=== PATIENT | female | born 1960 | race Caucasian/White ===

== ENCOUNTER → 2017-04-27 | Outpatient (CLI) | payer OTHER ==
--- NOTE | 2017-04-27 11:45 | REPMRS ---
Patient History The patient states she had a clinical breast exam in 05/03 Patient is postmenopausal. No known family history of cancer. Took unspecified hormones for 3 years 4 months. Digital Woman Screen Mammo: April 27, 2017 - Exam #: [id number] Bilateral CC and MLO view(s) were taken. Technologist: Dee Dee Ramos, Technologist Prior study comparison: February 12, 2016, digital woman screen mammo performed at [facility]. September 02, 2014, digital woman screen mammo performed at [facility]. December 04, 2012, digital woman screen mammo performed at [facility]. FINDINGS: The breast tissue is heterogeneously dense. This may lower the sensitivity of mammography. There is a moderate amount of heterogeneously dense fibroglandular tissue which is fairly symmetric. There is no interval development of dominant mass, architectural distortion, or clustered microcalcification typical of malignancy. There has been no change in the appearance of the mammogram from the prior studies. ASSESSMENT: BI-RADS/ACR category 1 mammogram. Negative. Recommendation Routine screening mammogram of both breasts in 1 year (for women over age 40). This mammogram was interpreted with the aid of an FDA-approved computer-aided dectection system. Electronically Signed By: Wellington Sheehan MD 04/27/17 [id number]
== END ==
LOC: M WHC 10:15
PROVIDERS: ATTEND Nurse Practitioner Family
DX: Z12.31 Encounter for screening mammogram for malignant neoplasm of breast (principal)

== ENCOUNTER → 2017-06-20 | Outpatient (REF) | payer OTHER | LOC: M LAB REF 13:47 | PROVIDERS: ATTEND Family Medicine | DX: R74.0 Nonspecific elevation of levels of transaminase and lactic acid dehydrogenase [LDH] (principal) ==

== ENCOUNTER → 2017-10-21 | Outpatient (CLI) | payer OTHER | LOC: M RAD 11:07 | DX: K80.50 Calculus of bile duct without cholangitis or cholecystitis without obstruction (principal) ==

== ENCOUNTER 2017-10-31 14:48 | Day surgery (SDC) | payer OTHER ==
[~2017-10-31 14:48] MED LIST: PANTOPRAZOLE 40MG TAB (PROTONIX) PO
[2017-10-31] MEDS ORDERED: ISOVUE-300 61% 50ML VIAL (Q9967) As Ordered (15:00)
[2017-10-31] MEDS: LR 1,000 ML IV (15:25)
[2017-10-31] MEDS ORDERED: PROPOFOL 200 MG/20 ML VIAL As Ordered (15:32)
[2017-10-31] MEDS ORDERED: ROCURONIUM BROMIDE 50 MG/5 ML VIAL As Ordered (15:32)
[2017-10-31] MEDS ORDERED: MIDAZOLAM INJ 2 MG/2 ML VIAL (J2250) As Ordered (15:33)
[2017-10-31] MEDS ORDERED: fentaNYL 100 MCG/2 ML INJECTION (J3010) As Ordered (15:33)
[2017-10-31] MEDS ORDERED: PHENYLephrine HCL 500 MCG/5 ML (100MCG/ML) SYRINGE (J2370) As Ordered (16:05)
[2017-10-31] MEDS ORDERED: GLYCOPYRROLATE INJ 0.2 MG/ML 2 ML VIAL As Ordered ×2 (16:33→16:34)
[2017-10-31] MEDS ORDERED: dexameTHASONE 4 MG/ML 1ML VIAL (J1100) As Ordered (16:34)
[2017-10-31] MEDS ORDERED: NEOSTIGMINE 10 MG/10 ML VIAL (J2710) As Ordered (16:34)
[2017-10-31] MEDS ORDERED: ONDANSETRON 4MG/2ML VIAL (J2405) As Ordered (16:34)
[2017-10-31] MEDS ORDERED: ONDANSETRON 4MG/2ML VIAL (J2405) IV (17:15)
[2017-10-31] MEDS ORDERED: METOCLOPRAMIDE INJ 10MG/2ML VIAL (J2765) IV (17:15)
[2017-10-31] MEDS ORDERED: LR 1,000 ML IV ×2 (17:15→17:45)
[2017-10-31] MEDS ORDERED: fentaNYL 100 MCG/2 ML INJECTION (J3010) IV (17:15)
[2017-10-31] MEDS ORDERED: MEPERIDINE INJ 25 MG/ML VIAL (J2175) IV (17:15)
[2017-10-31] MEDS ORDERED: PERCOCET 5MG/325MG TAB PO (17:15)
== END 2017-10-31 18:46 | disposition home or self-care (01) ==
LOC: M SDC 14:48
DX: K83.9 Disease of biliary tract, unspecified (principal); R93.5 Abnormal findings on diagnostic imaging of other abdominal regions, including retroperitoneum; R93.2 Abnormal findings on diagnostic imaging of liver and biliary tract; K80.50 Calculus of bile duct without cholangitis or cholecystitis without obstruction; K25.9 Gastric ulcer, unspecified as acute or chronic, without hemorrhage or perforation; K21.9 Gastro-esophageal reflux disease without esophagitis; Z79.899 Other long term (current) drug therapy
CPT/HCPCS: 43264

== ENCOUNTER → 2018-02-22 | Outpatient (REF) | payer OTHER ==
[2018-02-22 12:58] LABS: ALBUMIN/GLOBULIN RATIO 1.29 (1.00-1.93); ALKALINE PHOSPHATASE 91 U/L (45-117); ALT/SGPT 26 U/L (12-78); ANION GAP 10 MEQ/L (8-16); AST/SGOT 21 U/L (7-37); BILIRUBIN,TOTAL 0.6 MG/DL (0.2-1.0); BLOOD UREA NITROGEN 11 MG/DL (7-18); CALCIUM LEVEL 9.1 MG/DL (8.5-10.1); CARBON DIOXIDE LEVEL 27 MEQ/L (21-32); CHLORIDE LEVEL 108 MEQ/L (98-107); CHOLESTEROL LEVEL 167 MG/DL (<200); CHOLESTEROL RISK RATIO 2.609 (<5); CREATININE FOR GFR 0.81 MG/DL (0.55-1.30); GLOMERULAR FILTRATION RATE > 60.0 (>51); GLUCOSE, FASTING 98 MG/DL (70-100); HDL CHOLESTEROL 64 MG/DL (>40); LDL CHOLESTEROL 85.4 MG/DL (<100); NON-HDL-C 103 MG/DL; SODIUM LEVEL 145 MEQ/L (136-145); TOTAL PROTEIN 7.1 GM/DL (6.4-8.2); TRIGLYCERIDES LEVEL 88 MG/DL (<150)
[2018-02-22 13:29] LABS: ESTIMATED AVERAGE GLUCOSE 100 MG/DL (60-110); HEMOGLOBIN A1c 5.1 %
== END ==
LOC: M LABDRWAD 12:08
DX: Z13.220 Encounter for screening for lipoid disorders (principal); M65.4 Radial styloid tenosynovitis [de Quervain]; Z00.00 Encounter for general adult medical examination without abnormal findings

== ENCOUNTER → 2018-05-19 | Outpatient (CLI) | payer OTHER | LOC: M WHC 12:45 | DX: Z12.31 Encounter for screening mammogram for malignant neoplasm of breast (principal); Z92.29 Personal history of other drug therapy | CPT/HCPCS: 77067 ==

== ENCOUNTER → 2019-03-02 | Outpatient (REF) | payer OTHER ==
[~2019-03-02] MED LIST changes: +AUGM500T34 PO; +MULTCAP8 PO; +OMEP40CA97 PO; +PANT40TA3 PO; -PANTOPRAZOLE 40MG TAB (PROTONIX) PO; +RANI-397 PO; +VICO5TAB17 PO
[2019-03-02 19:49] LABS: HEMOGLOBIN A1c 5.1 %
[2019-03-02 20:04] LABS: ALBUMIN 4.3 GM/DL (3.2-5.2); ALT/SGPT 28 U/L (12-78); BILIRUBIN,TOTAL 0.5 MG/DL (0.2-1.0); BLOOD UREA NITROGEN 18 MG/DL (7-18); CALCIUM LEVEL 9.4 MG/DL (8.8-10.2); CARBON DIOXIDE LEVEL 28 MEQ/L (21-32); CHLORIDE LEVEL 106 MEQ/L (98-107); CHOLESTEROL LEVEL 168 MG/DL (<200); CHOLESTEROL RISK RATIO 2.709 (<5); CREATININE FOR GFR 0.92 MG/DL (0.55-1.30); GLOMERULAR FILTRATION RATE > 60.0 (>45); GLUCOSE, FASTING 97 MG/DL (70-100); HDL CHOLESTEROL 62 MG/DL (>40); LDL CHOLESTEROL 88 MG/DL (<100); NON-HDL-C 106 MG/DL; POTASSIUM SERUM 4.5 MEQ/L (3.5-5.1); SODIUM LEVEL 142 MEQ/L (136-145); TOTAL PROTEIN 7.4 GM/DL (6.4-8.2); TRIGLYCERIDES LEVEL 88 MG/DL (<150)
== END ==
LOC: M LABDRWAD 18:59
PROVIDERS: ATTEND Family Medicine
DX: Z00.00 Encounter for general adult medical examination without abnormal findings (principal); Z13.220 Encounter for screening for lipoid disorders

== ENCOUNTER → 2019-07-16 | Outpatient (CLI) | payer OTHER ==
--- NOTE | 2019-07-16 15:06 | REPMRS ---
Patient History The patient states she has not had a clinical breast exam in over a year. No known family history of cancer. Took unspecified hormones for 3 years 4 months. Digital Woman Screen Mammo: July 16, 2019 - Exam #: [id number] Bilateral CC and MLO view(s) were taken. Technologist: Emily Cowan, Technologist Prior study comparison: May 19, 2018, bilateral digital woman screen mammo performed at [facility]. April 27, 2017, digital woman screen mammo performed at [facility]. February 12, 2016, digital woman screen mammo performed at [facility]. FINDINGS: The breast tissue is heterogeneously dense. This may lower the sensitivity of mammography. There is a moderate amount of heterogeneously dense fibroglandular tissue which is fairly symmetric. There is no interval development of dominant mass, architectural distortion, or grouped microcalcification typical of malignancy. There has been no change in the appearance of the mammogram from the prior studies. 3-D tomosynthesis shows no additional findings. Assessment: BI-RADS/ACR category 1 mammogram. Negative Mammogram. Recommendation Routine screening mammogram of both breasts in 1 year (for women over age 40). This patient's Lifetime Breast Cancer RIsk is estimated at 8.3 %. This mammogram was interpreted with the aid of an FDA-approved computer-aided dectection system. Electronically Signed By: Wellington Sheehan MD 07/16/19 [id number]
== END ==
LOC: M WHC 09:57
PROVIDERS: ATTEND Family Medicine
DX: Z12.31 Encounter for screening mammogram for malignant neoplasm of breast (principal)

== ENCOUNTER 2020-04-01 12:10 | Emergency (ER) | payer OTHER ==
[~2020-04-01] VITALS: Ht 167.6 cm; Wt 92.9 kg
[~2020-04-01 12:10] MED LIST changes: +PANT40TA29 PO; -PANT40TA3 PO
[2020-04-01] MEDS ORDERED: PEPC10TA6 PO (12:17)
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
[2020-04-01] MEDS ORDERED: NORCO, ANEXSIA 5/325MG TABLET (HYDROcodone/ACETAMINOPHEN) PO ONE (13:15)
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
[2020-04-01] MEDS ORDERED: NORC1TAB7 PO (14:26)
[2020-04-01] MEDS ORDERED: NORCO 5/325MG TABLET (BULK FOR ED) PO ONE (14:30)
[2020-04-01 14:31] VITALS: BP 115/68
== END 2020-04-01 14:46 | disposition home or self-care (01) ==
LOC: M ED 12:10
DX: S52.122A Displaced fracture of head of left radius, initial encounter for closed fracture (principal); S52.612A Displaced fracture of left ulna styloid process, initial encounter for closed fracture; V18.0XXA Pedal cycle driver injured in noncollision transport accident in nontraffic accident, initial encounter; Y92.9 Unspecified place or not applicable; Y93.9 Activity, unspecified; Y99.9 Unspecified external cause status; Z79.899 Other long term (current) drug therapy

== ENCOUNTER → 2020-07-21 | Outpatient (CLI) | payer OTHER ==
[~2020-07-21] MED LIST changes: +NORC1TAB7 PO; +PEPC10TA6 PO
--- NOTE | 2020-07-21 12:08 | REPMRS ---
Patient History The patient states she had a clinical breast exam in 02/2020 No known family history of cancer. Took unspecified hormones for 3 years 4 months. 3D TOMOSYNTHESIS WAS PERFORMED. The Noel Adler lifetime risk for breast cancer is 8.0%. Volpara breast density b. Digital Woman Screen Mammo: July 21, 2020 - Exam #: [id number] Bilateral CC and MLO view(s) were taken. Technologist: Dee Dee Ramos, Technologist Prior study comparison: July 16, 2019, bilateral digital woman screen mammo performed at [facility]. May 19, 2018, bilateral digital woman screen mammo performed at [facility][1]. FINDINGS: There are scattered fibroglandular densities. There has been no change in the appearance of the mammogram from the prior studies. There is a mild amount of residual fibroglandular tissue which is fairly symmetric. There is no interval development of dominant mass, architectural distortion, or clustered microcalcification suggestive of malignancy. Assessment: BI-RADS/ACR category 1 mammogram. Negative Mammogram. Recommendation Routine screening mammogram in 1 year (for women over age 40). This mammogram was interpreted with the aid of an FDA-approved computer-aided dectection system. Electronically Signed By: Mert Owen MD 07/21/20 [id number]
== END ==
LOC: M WHC 10:30
PROVIDERS: ATTEND Family Medicine
DX: Z12.31 Encounter for screening mammogram for malignant neoplasm of breast (principal)

== ENCOUNTER → 2020-07-22 | Outpatient (REF) | payer OTHER | LOC: M SFHCWAGY 13:19 | PROVIDERS: ATTEND Nurse Practitioner Family | DX: Z12.4 Encounter for screening for malignant neoplasm of cervix (principal) | CPT/HCPCS: 87624; G0123 ==

== ENCOUNTER → 2020-08-15 | Outpatient (CLI) | payer SELFPAY | LOC: M LABSMTC 11:27 | PROVIDERS: ATTEND Pediatrics | DX: Z20.822 Contact with and (suspected) exposure to COVID-19 (principal) ==

== ENCOUNTER → 2021-06-29 | Outpatient (REF) | payer OTHER ==
[~2021-06-29] MED LIST changes: +OMEP40CA4 PO; -OMEP40CA97 PO
== END ==
LOC: M SFHCWAGY 16:48
PROVIDERS: ATTEND Nurse Practitioner Women's Health
DX: N76.1 Subacute and chronic vaginitis (principal)

== ENCOUNTER → 2021-12-10 | Outpatient (CLI) | payer OTHER ==
[2021-12-10 17:32] LABS: BLOOD UREA NITROGEN 16 MG/DL (7-18); CALCIUM LEVEL 8.7 MG/DL (8.8-10.2); CARBON DIOXIDE LEVEL 27 MEQ/L (21-32); CHLORIDE LEVEL 106 MEQ/L (98-107); CREATININE FOR GFR 0.98 MG/DL (0.55-1.30); GLOMERULAR FILTRATION RATE > 60.0 (>45); GLUCOSE, FASTING 96 MG/DL (70-100); MAGNESIUM LEVEL 2.2 MG/DL (1.8-2.4); POTASSIUM SERUM 4.1 MEQ/L (3.5-5.1); SODIUM LEVEL 138 MEQ/L (136-145)
[2021-12-10 17:42] LABS: TOTAL 25(OH) VITAMIN D 43.8 NG/ML (30.0-100.0); VITAMIN B12 LEVEL 419 PG/ML (247-911)
== END ==
LOC: M ADAMS 13:08
PROVIDERS: ATTEND Physician Assistant
DX: E55.9 Vitamin D deficiency, unspecified (principal)

== ENCOUNTER → 2022-01-08 | Outpatient (REF) | payer OTHER ==
[2022-01-08 16:59] LABS: CREATININE,RANDOM URINE 99.5 MG/DL; TOTAL PROTEIN,RANDOM URINE 10.5 MG/DL (0.0-12.0)
[2022-01-08 17:09] LABS: APPEARANCE, URINE MANUAL CLEAR (CLEAR); BILIRUBIN, URINE MANUAL NEGATIVE (NEGATIVE); COLOR, URINE MANUAL YELLOW (YELLOW); GLUCOSE, URINE (UA) MANUAL NEGATIVE (NEGATIVE); KETONE, URINE MANUAL NEGATIVE (NEGATIVE); PROTEIN, URINE MANUAL NEGATIVE (NEGATIVE); SPECIFIC GRAVITY,URINE MANUAL 1.025 (1.002-1.035); UROBILINOGEN, URINE MANUAL NORMAL (NORMAL)
[2022-01-08 17:10] LABS: BLOOD URINE MANUAL NEGATIVE (NEGATIVE); LEUKOCYTE ESTERASE, URINE MAN NEGATIVE (NEGATIVE); NITRITE, URINE MANUAL NEGATIVE (NEGATIVE)
[2022-01-08 17:20] LABS: BASO # 0.1 10^3/uL (0.0-0.2); BASO % 0.6 % (0.0-1.0); EOS # 0.3 10^3/uL (0.0-0.5); EOS % 3.6 % (0.0-3.0); HEMATOCRIT 43.7 % (36.0-47.0); HEMOGLOBIN 14.3 g/dl (12.0-15.5); LYMPH # 1.7 10^3/uL (1.5-5.0); LYMPH % 22.5 % (24.0-44.0); MEAN CORPUSCULAR HEMOGLOBIN 31.8 pg (27.0-33.0); MEAN CORPUSCULAR HGB CONC 32.7 g/dl (32.0-36.5); MEAN CORPUSCULAR VOLUME 97.1 fl (80.0-96.0); MONO # 0.5 10^3/uL (0.0-0.8); MONO % 5.8 % (2.0-8.0); NEUTROPHILS # 5.2 10^3/uL (1.5-8.5); NEUTROPHILS % 67.2 % (36.0-66.0); PLATELET COUNT, AUTOMATED 236 10^3/uL (150-450); WHITE BLOOD COUNT 7.8 10^3/uL (4.0-10.0)
[2022-01-08 17:28] LABS: ALBUMIN 4.3 GM/DL (3.2-5.2); ALT/SGPT 52 U/L (12-78); BILIRUBIN,TOTAL 0.6 MG/DL (0.2-1.0); BLOOD UREA NITROGEN 15 MG/DL (7-18); C REACTIVE PROTEIN QUANTITATIV 0.54 MG/DL (0.00-0.30); CALCIUM LEVEL 9.8 MG/DL (8.8-10.2); CARBON DIOXIDE LEVEL 25 MEQ/L (21-32); CHLORIDE LEVEL 104 MEQ/L (98-107); COMPLEMENT C3 109 MG/DL (90-180); COMPLEMENT C4 21 MG/DL (10-40); CREATININE FOR GFR 0.93 MG/DL (0.55-1.30); GLOMERULAR FILTRATION RATE > 60.0 (>45); GLUCOSE, FASTING 94 MG/DL (70-100); POTASSIUM SERUM 3.9 MEQ/L (3.5-5.1); SODIUM LEVEL 140 MEQ/L (136-145); TOTAL PROTEIN 7.5 GM/DL (6.4-8.2)
[2022-01-08 17:42] LABS: THYROGLOBULIN ANTIBODY < 15.0 U/ML (<60.0)
[2022-01-08 18:37] LABS: ERYTHROCYTE SEDIMENTATION RATE 8 mm/hr (0-30)
== END ==
LOC: M SFHCRHEU 14:31
PROVIDERS: ATTEND Internal Medicine Rheumatology
DX: R76.8 Other specified abnormal immunological findings in serum (principal); H04.123 Dry eye syndrome of bilateral lacrimal glands; R21 Rash and other nonspecific skin eruption; M35.3 Polymyalgia rheumatica

== ENCOUNTER → 2022-02-24 | Outpatient (CLI) | payer OTHER | LOC: M WUC 08:47 | PROVIDERS: ATTEND Internal Medicine Rheumatology | DX: R76.8 Other specified abnormal immunological findings in serum (principal); H04.123 Dry eye syndrome of bilateral lacrimal glands; R21 Rash and other nonspecific skin eruption; M35.3 Polymyalgia rheumatica; M19.031 Primary osteoarthritis, right wrist; M19.032 Primary osteoarthritis, left wrist; M19.071 Primary osteoarthritis, right ankle and foot; M19.072 Primary osteoarthritis, left ankle and foot ==

== ENCOUNTER → 2022-08-30 | Outpatient (REF) | payer OTHER | LOC: M WUC 16:08 | PROVIDERS: ATTEND Student in an Organized Health Care Education/Training Program | DX: R30.0 Dysuria (principal); M54.50 Low back pain, unspecified ==

== ENCOUNTER → 2022-08-30 | Outpatient (CLI) | payer OTHER ==
[2022-08-30 16:25] LABS: BASO # 0.1 10^3/uL (0.0-0.2); BASO % 0.8 % (0.0-1.0); EOS # 0.2 10^3/uL (0.0-0.5); HEMATOCRIT 43.6 % (36.0-47.0); HEMOGLOBIN 14.3 g/dl (12.0-15.5); LYMPH # 2.2 10^3/uL (1.5-5.0); LYMPH % 28.5 % (24.0-44.0); MEAN CORPUSCULAR HEMOGLOBIN 31.2 pg (27.0-33.0); MEAN CORPUSCULAR HGB CONC 32.8 g/dl (32.0-36.5); MEAN CORPUSCULAR VOLUME 95.2 fl (80.0-96.0); MONO # 0.6 10^3/uL (0.0-0.8); MONO % 7.6 % (2.0-8.0); NEUTROPHILS # 4.7 10^3/uL (1.5-8.5); PLATELET COUNT, AUTOMATED 256 10^3/uL (150-450); RED BLOOD COUNT 4.58 10^6/uL (4.00-5.40); WHITE BLOOD COUNT 7.8 10^3/uL (4.0-10.0)
[2022-08-30 16:36] LABS: ERYTHROCYTE SEDIMENTATION RATE 16 mm/hr (0-30)
[2022-08-30 16:42] LABS: TOTAL PROTEIN,RANDOM URINE 11.7 MG/DL (0.0-14.0)
[2022-08-30 16:44] LABS: C REACTIVE PROTEIN QUANTITATIV < 0.40 MG/DL (<1.0)
[2022-08-30 16:45] LABS: COMPLEMENT C3 123.9 MG/DL (90.0-170.0); COMPLEMENT C4 21.9 MG/DL (12-36)
[2022-08-30 16:48] LABS: APPEARANCE, URINE MANUAL CLOUDY (CLEAR); BILIRUBIN, URINE MANUAL NEGATIVE (NEGATIVE); BLOOD URINE MANUAL NEGATIVE (NEGATIVE); COLOR, URINE MANUAL YELLOW (YELLOW); GLUCOSE, URINE (UA) MANUAL NEGATIVE (NEGATIVE); KETONE, URINE MANUAL NEGATIVE (NEGATIVE); LEUKOCYTE ESTERASE, URINE MAN TRACE (NEGATIVE); NITRITE, URINE MANUAL NEGATIVE (NEGATIVE); PROTEIN, URINE MANUAL NEGATIVE (NEGATIVE); UROBILINOGEN, URINE MANUAL NORMAL (NORMAL)
[2022-08-30 16:49] LABS: ALKALINE PHOSPHATASE 92 U/L (46-116); ALT/SGPT 43 U/L (7.0-40); AST/SGOT 31 U/L (<34); BILIRUBIN,TOTAL 0.7 MG/DL (0.3-1.2); BLOOD UREA NITROGEN 17 MG/DL (9-23); CALCIUM LEVEL 8.7 MG/DL (8.3-10.6); CARBON DIOXIDE LEVEL 28 MMOL/L (20-31); CHLORIDE LEVEL 103 MMOL/L (98-107); CREATININE FOR GFR 0.87 MG/DL (0.55-1.30); GLOMERULAR FILTRATION RATE > 60.0 (>45); GLUCOSE, FASTING 81 MG/DL (74-106); POTASSIUM SERUM 4.1 MMOL/L (3.5-5.1); SODIUM LEVEL 139 MMOL/L (136-145); TOTAL PROTEIN 6.9 G/DL (5.7-8.2)
[2022-08-30 16:59] LABS: CREATININE,RANDOM URINE 260.8 MG/DL
[2022-08-30 18:35] LABS: AMORPHOUS SEDIMENT, URINE LARGE AMOUNT (NEGATIVE); BACTERIA, URINE NONE SEEN; RBC, URINE NONE SEEN /hpf (0-3); SQUAMOUS EPITHELIAL CELL URINE NONE SEEN /hpf (SMALL AMT)
== END ==
LOC: M WUC 12:51
PROVIDERS: ATTEND Internal Medicine Rheumatology
DX: R76.8 Other specified abnormal immunological findings in serum (principal); H04.123 Dry eye syndrome of bilateral lacrimal glands; R21 Rash and other nonspecific skin eruption; M35.3 Polymyalgia rheumatica

== ENCOUNTER → 2022-09-28 | Outpatient (REF) | payer OTHER | LOC: M SFHCWAGY 17:38 | PROVIDERS: ATTEND Nurse Practitioner Family | DX: Z12.4 Encounter for screening for malignant neoplasm of cervix (principal) | CPT/HCPCS: 87624; G0123 ==

== ENCOUNTER → 2022-09-28 | Outpatient (CLI) | payer OTHER | LOC: M WHC 14:28 | PROVIDERS: ATTEND Nurse Practitioner Family | DX: Z12.31 Encounter for screening mammogram for malignant neoplasm of breast (principal) ==

== ENCOUNTER → 2023-01-06 | Outpatient (CLI) | payer OTHER | LOC: M WHC 10:39 | PROVIDERS: ATTEND Nurse Practitioner Family | DX: Z13.820 Encounter for screening for osteoporosis (principal) ==

== ENCOUNTER → 2023-09-05 | Outpatient (CLI) | payer OTHER ==
[2023-09-05 17:38] LABS: MAGNESIUM LEVEL 2.2 MG/DL (1.8-2.4)
[2023-09-05 17:44] LABS: TOTAL 25(OH) VITAMIN D 34.7 NG/ML (20.0-100.0)
== END ==
LOC: M WUC 11:18
PROVIDERS: ATTEND Physician Assistant
DX: K22.710 Barrett's esophagus with low grade dysplasia (principal); Z86.010 Personal history of colon polyps; E55.9 Vitamin D deficiency, unspecified

== ENCOUNTER → 2023-09-05 | Outpatient (CLI) | payer OTHER ==
[2023-09-05 17:30] LABS: AMORPHOUS SEDIMENT SMALL (NEGATIVE); APPEARANCE, URINE TURBID (CLEAR); BACTERIA, URINE AUTO NEGATIVE (NEGATIVE); BASO # 0.1 10^3/uL (0.0-0.2); BASO % 0.6 % (0.0-1.0); BILIRUBIN, URINE AUTO NEGATIVE (NEGATIVE); BLOOD, URINE BLOOD NEGATIVE (NEGATIVE); COLOR, URINE RED (YELLOW); EOS # 0.2 10^3/uL (0.0-0.5); EOS % 2.6 % (0.0-3.0); GLUCOSE, URINE (UA) AUTO NEGATIVE (NEGATIVE); HEMATOCRIT 44.8 % (36.0-47.0); HEMOGLOBIN 14.8 g/dl (12.0-15.5); KETONE, URINE AUTO NEGATIVE (NEGATIVE); LEUKOCYTE ESTERASE, URINE AUTO TRACE (NEGATIVE); LYMPH # 2.2 10^3/uL (1.5-5.0); LYMPH % 24.9 % (24.0-44.0); MEAN CORPUSCULAR HEMOGLOBIN 32.2 pg (27.0-33.0); MEAN CORPUSCULAR VOLUME 97.4 fl (80.0-96.0); MONO # 0.6 10^3/uL (0.0-0.8); MONO % 7.2 % (2.0-8.0); MUCUS, URINE LARGE (NEGATIVE); NEUTROPHILS # 5.7 10^3/uL (1.5-8.5); NEUTROPHILS % 64.5 % (36.0-66.0); NITRITE, URINE AUTO NEGATIVE (NEGATIVE); PLATELET COUNT, AUTOMATED 272 10^3/uL (150-450); PROTEIN, URINE AUTO NEGATIVE (NEGATIVE); RBC, URINE AUTO 0 /HPF (0-3); SPECIFIC GRAVITY URINE AUTO 1.028 (1.002-1.035); SQUAMOUS EPITHELIAL CELL UR AU 0 /HPF (0-6); WBC, URINE AUTO 96 /HPF (0-3); WHITE BLOOD COUNT 8.9 10^3/uL (4.0-10.0)
[2023-09-05 17:36] LABS: TOTAL PROTEIN,RANDOM URINE 11.5 MG/DL (0.0-14.0)
[2023-09-05 17:39] LABS: ALBUMIN 4.2 G/DL (3.2-5.2); ALKALINE PHOSPHATASE 93 U/L (46-116); ALT/SGPT 46 U/L (7.0-40); AST/SGOT 28 U/L (<34); BILIRUBIN,TOTAL 0.6 MG/DL (0.3-1.2); BLOOD UREA NITROGEN 15 MG/DL (9-23); C REACTIVE PROTEIN QUANTITATIV < 0.40 MG/DL (<1.0); CALCIUM LEVEL 9.4 MG/DL (8.3-10.6); CARBON DIOXIDE LEVEL 32 MMOL/L (20-31); CHLORIDE LEVEL 106 MMOL/L (98-107); CREATININE FOR GFR 0.83 MG/DL (0.55-1.30); GLOMERULAR FILTRATION RATE > 60.0 (>45); GLUCOSE, FASTING 87 MG/DL (74-106); POTASSIUM SERUM 4.6 MMOL/L (3.5-5.1); SODIUM LEVEL 141 MMOL/L (136-145); TOTAL PROTEIN 7.3 G/DL (5.7-8.2)
[2023-09-05 17:41] LABS: COMPLEMENT C3 146.2 MG/DL (90.0-170.0)
[2023-09-05 17:42] LABS: COMPLEMENT C4 23.5 MG/DL (12-36)
[2023-09-05 17:59] LABS: ERYTHROCYTE SEDIMENTATION RATE 18 mm/hr (0-30)
[2023-09-08 15:16] LABS: ANTI DS-DNA AB Negative (Negative); COMPLEMENT TOTAL (CH50) > 60 U/mL (>41)
== END ==
LOC: M WUC 11:15
PROVIDERS: ATTEND Internal Medicine Rheumatology
DX: R76.8 Other specified abnormal immunological findings in serum (principal); H04.123 Dry eye syndrome of bilateral lacrimal glands; R21 Rash and other nonspecific skin eruption; M35.3 Polymyalgia rheumatica

== ENCOUNTER → 2023-09-09 | Outpatient (REF) | payer OTHER, MEDICARE | LOC: M LAB REF 16:19 | PROVIDERS: ATTEND Family Medicine | DX: R30.0 Dysuria (principal) ==

== ENCOUNTER → 2023-11-03 | Outpatient (CLI) | payer MEDICARE, OTHER | LOC: M WHC 08:36 | PROVIDERS: ATTEND Nurse Practitioner Family | DX: Z12.31 Encounter for screening mammogram for malignant neoplasm of breast (principal); R92.323 Mammographic fibroglandular density, bilateral breasts ==

== ENCOUNTER → 2024-10-01 | Outpatient (REF) | payer MEDICARE, OTHER ==
[2024-10-01 15:35] LABS: BLOOD UREA NITROGEN 19 MG/DL (9-23); CALCIUM LEVEL 9.9 MG/DL (8.3-10.6); CARBON DIOXIDE LEVEL 30 MMOL/L (20-31); CHLORIDE LEVEL 103 MMOL/L (98-107); CREATININE FOR GFR 0.94 MG/DL (0.55-1.30); GLOMERULAR FILTRATION RATE > 60.0 (>45); GLUCOSE, FASTING 101 MG/DL (74-106); MAGNESIUM LEVEL 2.5 MG/DL (1.8-2.4); POTASSIUM SERUM 4.8 MMOL/L (3.5-5.1); SODIUM LEVEL 141 MMOL/L (136-145)
[2024-10-01 15:36] LABS: TOTAL 25(OH) VITAMIN D 41.1 NG/ML (20.0-100.0); VITAMIN B12 LEVEL 569 PG/ML (211-911)
== END ==
LOC: M LABWUC 14:27
PROVIDERS: ATTEND Physician Assistant
DX: K21.9 Gastro-esophageal reflux disease without esophagitis (principal); E55.9 Vitamin D deficiency, unspecified; Z86.0101 Personal history of adenomatous and serrated colon polyps

== ENCOUNTER → 2025-02-07 | Outpatient (CLI) | payer MEDICARE, OTHER | LOC: M WUC 15:38 | PROVIDERS: ATTEND Student in an Organized Health Care Education/Training Program | DX: S62.617A Displaced fracture of proximal phalanx of left little finger, initial encounter for closed fracture (principal); Y92.9 Unspecified place or not applicable; Y93.9 Activity, unspecified ==